=== PATIENT | male | born 1955 | race American Indian/Alaskan Native ===

== ENCOUNTER 2019-03-03 14:40 | Inpatient (IN) | payer OTHER ==
[~2019-03-03] VITALS: Ht 172.7 cm; Wt 97.6 kg
--- OUTSIDE RECORDS SUMMARY | ~2019-03-03 | XMS | Clinical Summary ---
Demographics + + + | Address | [address] | | | [place] [address] | + + + | Home Phone | | + + + | Preferred Language | Unknown | + + + | Marital Status | | + + + | Restorationist Affiliation | Unknown | + + + | Race | Unknown | + + + | Ethnic Group | Unknown | + + + Author + + + | Author | [facility] | | | and [place] | + + + | Organization | [facility] | | | and [place] | + + + | Address | Unknown | + + + | Phone | Unavailable | + + + Support + + +---------+ + | Name | Relationship | Address | Phone | + + +---------+ + | Earlene Reyes | ECON | Unknown | | + + +---------+ + Care Team Providers + +------+ + | Care President Financial Institution Name | Role | Phone | + +------+ + | Gely Cohen PA-C | PCP | | + +------+ + Allergies + + + + + + | Active Allergy | Reactions | Severity | Noted | Comments | | | | | Date | | + + + + + + | Diazepam | Other (See Comments) | High | 03/31/20 | Oversedation; | | | | | 17 | hallucinations; | | | | | | nightmares | + + + + + + | Oxycodone | Other (See Comments) | High | 03/31/20 | Over-sedation; | | | | | 17 | hallucinations; | | | | | | nightmares | + + + + + + | Pecan Nut | Anaphylaxis | High | 01/10/20 | Tongue swells | | | | | 17 | | + + + + + + Medications + + + +---------+------+------+-------+ | Medication | Sig | Dispensed | Refills | Star | End | Statu | | | | | | t | Date | s | | | | | | Date | | | + + + +---------+------+------+-------+ | lisinopril | Take 20 mg by mouth | | 0 | | | Activ | | (PRINIVIL, ZESTRIL) | Daily. | | | | | e | | 20 mg tablet | | | | | | | + + + +---------+------+------+-------+ | metoprolol | Take 100 mg by mouth | | 0 | | | Activ | | tartrate (LOPRESSOR) | Daily. High blood | | | | | e | | 100 mg tablet | pressure | | | | | | + + + +---------+------+------+-------+ | propranolol | Take 20 mg by mouth | | 0 | | | Activ | | (INDERAL) 20 MG | as needed. anxiety | | | | | e | | tablet | | | | | | | + + + +---------+------+------+-------+ | | Take 1 tablet by | | 0 | | | Activ | | triamterene-hydrochl | mouth Daily. | | | | | e | | orothiazide | | | | | | | | (MAXZIDE-25) 37.5-25 | | | | | | | | mg per tablet | | | | | | | + + + +---------+------+------+-------+ | zolpidem (AMBIEN | Take 12.5 mg by | | 0 | | | Activ | | CR) 12.5 MG CR | mouth nightly. | | | | | e | | tablet | | | | | | | + + + +---------+------+------+-------+ | atorvaSTATin | Take 20 mg by mouth | | 0 | 10/1 | | Activ | | (LIPITOR) 20 mg | nightly. | | | 8/20 | | e | | tablet | | | | 17 | | | + + + +---------+------+------+-------+ | docusate sodium | Take 100 mg by mouth | | 0 | | | Activ | | (COLACE) 100 mg | as needed for | | | | | e | | capsule | Constipation. | | | | | | + + + +---------+------+------+-------+ Active Problems + + + | Problem | Noted Date | + + + | Hypertensive CHF | 10/15/2016 | + + + | Hyperlipidemia | 10/15/2016 | + + + | Obesity | 10/15/2016 | + + + | Insomnia | 10/15/2016 | + + + | Hypertension | 10/15/2016 | + + + Family History + + +---------+ + | Medical History | Relation | Name | Comments | + + +---------+ + | Other (see comment) | Brother | | Heart problems | + + +---------+ + | Alcohol abuse | Father | | | + + +---------+ + | Heart attack | Father | | | + + +---------+ + | Other (see comment) | Father | | Heart problems | + + +---------+ + | No known problems | Maternal | | | | | Grandfath | | | | | er | | | + + +---------+ + | Other (see comment) | Maternal | | Lung problems | | | Grandmoth | | | | | er | | | + + +---------+ + | Cancer | Mother | | | + + +---------+ + | Other (see comment) | Mother | | Lung problems | + + +---------+ + | High blood pressure | Other | FAMILY | | | | | HX | | + + +---------+ + | Alzheimer's disease | Paternal | | | | | Grandfath | | | | | er | | | + + +---------+ + | No known problems | Paternal | | | | | Grandmoth | | | | | er | | | + + +---------+ + + + + + + | Relation | Name | Status | Comments | + + + + + | Brother | | | | | | | (Age | | | | | 3) | | + + + + + | Father | | | | | | | (Age | | | | | 53) | | + + + + + | Maternal Grandfather | | Other | STATUS UNKNOWN | + + + + + | Maternal Grandmother | | | | + + + + + | Mother | | | | | | | (Age | | | | | 53) | | + + + + + | Other | FAMILY HX | | | + + + + + | Paternal Grandfather | | | | | | | (Age | | | | | 103) | | + + + + + | Paternal Grandmother | | Other | STATUS UNKNOWN | + + + + + Social History + +-------+ +--------+ + | Tobacco Use | Types | Packs/Day | Years | Date | | | | | Used | | + +-------+ +--------+ + | Former Smoker | | 1 | 18 | Quit: 2004 | + +-------+ +--------+ + + +---+---+---+ | Smokeless Tobacco: | | | | | Never Used | | | | + +---+---+---+ + + +---------+ + | Alcohol Use | Drinks/We | oz/Week | Comments | | | ek | | | + + +---------+ + | No | | | | + + +---------+ + + + + | Sex Assigned at | Date Recorded | | | | + + + | Not on file | | + + + + + + + | Job Start Date | Occupation | Industry | + + + + | Not on file | Not on file | Not on file | + + + + + + + + | Travel History | Travel Start | Travel End | + + + + + + | No recent travel history available. | + + Last Filed Vital Signs + + + + | Vital Sign | Reading | Time Taken | + + + + | Blood Pressure | 134/83 | 06/26/20178 PST | + + + + | Pulse | 60 | 06/26/20178 PST | + + + + | Temperature | 36.2 C (97.1 F) | 03/25/20171154 PST | + + + + | Respiratory Rate | 16 | 03/25/20175 PST | + + + + | Oxygen Saturation | 96% | 03/25/2017 1155 PST | + + + + | Inhaled Oxygen | - | - | | Concentration | | | + + + + | Weight | 104.8 kg (231 lb) | 06/26/20171247 PST | + + + + | Height | 172.7 cm (5' 8") | 06/26/20171247 PST | + + + + | Body Mass Index | 35.12 | 06/26/20171247 PST | + + + + Plan of Treatment + + + + + | Health Maintenance | Due Date | Last Done | Comments | + + + + + | Hepatitis C | | | | | Screening | 7 | | | + + + + + | Vaccine: | | | | | Pneumococcal 19-64 | 6 | | | | (PPSV23 only) Medium | | | | | Risk (1 of - | | | | | PPSV23) | | | | + + + + + | Colorectal Cancer | | | | | Screening | 7 | | | | (Colonoscopy) | | | | + + + + + | Vaccine: Zoster (2 | | 02/05/2017 | | | of 3) | 7 | | | + + + + + | Vaccine: Influenza | | 01/22/2018, 02/05/2017, | | | (#1) | 9 | 01/04/2016, Additional history | | | | | exists | | + + + + + | Vaccine: | | 10/09/2011 | | | Dtap/Tdap/Td (2 - | 2 | | | | Td) | | | | + + + + + Implants + +--------+--------+ +--------+--------+--------+ | Implanted | Type | Area | Manufacture | Device | Shelf | Model | | | | | r | | Expira | / | | | | | | Identi | tion | Serial | | | | | | fier | Date | / Lot | + +--------+--------+ +--------+--------+--------+ | Putty Bone Dbm Grftn 0.5cc - | Bone | N/A: | [employer] - | | 12/24/ | [id number] | | [id number]: Qty: 1 | | Spine | MEDT | | 2019 | | | on 03/24/2017 by Armen, | | Cervic | | | | /[id number] | | Zaire Castañeda DO | | al | | | | 9-050 | | | | | | | | / | + +--------+--------+ +--------+--------+--------+ | Strut Anatomic Peek [id number] | Generi | N/A: | [employer] - | | 06/13/ | [id number] | | - [id number]: Qty: 1 | c | Spine | MEDT | | 2024 | 1 / | | on 03/24/2017 by Armen, | | Cervic | | | | /[id number] | | Zaire Castañeda DO | | al | | | | | + +--------+--------+ +--------+--------+--------+ | Imp Spn Rupal Peek [id number] - | Generi | N/A: | [employer] - | | 12/13/ | [id number] | | [id number]: Qty: 2 | c | Spine | MEDT | | 2023 | 1 / | | on 03/24/2017 by Armen, | | Jonathan | | | | /[id number] | | Zaire Castañeda DO | | al | | | | 622 | + +--------+--------+ +--------+--------+--------+ | Plate Ant [place] Cerv 35mm | Plate | N/A: | [employer] - | | | [id number] | | - [id number]: Qty: 1 | | Spine | MEDT | | | 5 / / | | on 03/24/2017 by Armen, | | Jonathan | | | | | | Zaire Castañeda DO | | al | | | | | + +--------+--------+ +--------+--------+--------+ | Screw Slf-Drl V/A 4.0x17mm - | Screw | N/A: | [employer] - | | | [id number] | | [id number]: Qty: 1 on | | Spine | MEDT | | | / | | 03/24/2017 by Zaire Ayers | | Jonathan | | | | | | DO Maddy | | al | | | | | + +--------+--------+ +--------+--------+--------+ | Screw Slf-Drl V/A 4.0x18mm - | Screw | N/A: | [employer] - | | | [id number] | | [id number]: Qty: 3 on | | Spine | MEDT | | | | | 03/24/2017 by Zaire Ayers | | Cervic | | | | | | A, DO | | al | | | | | + +--------+--------+ +--------+--------+--------+ Results Not on filefrom Last 3 Months Insurance + +--------+ +--------+ +---------+--------+ | Payer | Benefi | Subscriber | Effect | Phone | Address | Type | | | t Plan | ID | chiquis | | | | | | / | | Dates | | | | | | Group | | | | | | + +--------+ +--------+ +---------+--------+ | [place] | MEDICA | [id number] | | [phone] | | Med[place] | | | [place] | | 017-Pr | 2 | | id | | | PLUS | | esent | | | | + +--------+ +--------+ +---------+--------+ | [facility] | IHS | [id number] | | | | Indemn | | SERVICE | YELLOW | | 017-Pr | | | ity | | | HAWK | | esent | | | | + +--------+ +--------+ +---------+--------+ + +--------+ +--------+ + + | Guarantor Name | Accoun | Relation to | Date | Phone | Billing Address | | | t Type | Patient | of | | | | | | | | | | + +--------+ +--------+ + + | Eric Reyes Jr | Person | Self [birth year] | [address] | | | al/Fam | | 1955 | [phone] | [place] [address] | | | pawan | | | 3 (Home) | | + +--------+ +--------+ + + Advance Directives Patient has advance care planning documents, and code status on file. For more information, please contact:[facility]y [facility] [place] [phone] + + + + + | Code Status | Date | Date | Comments | | | Activated | Inactivated | | + + + + + | Full Code | 03/24/2017 | 03/25/2017 | | | | 16:16 | 18:36 | | + + + + +
--- OUTSIDE RECORDS SUMMARY | ~2019-03-03 | XMS | Clinical Summary ---
Demographics + + + | Address | [address] | | | [place] [address] | + + + | Home Phone | | + + + | Preferred Language | Unknown | + + + | Marital Status | | + + + | Bahai Affiliation | Unknown | + + + | Race | Unknown | + + + | Ethnic Group | Unknown | + + + Author + + + | Author | [facility] | | | and [place] | + + + | Organization | [facility] | | | and [place] [...] Team Providers + +------+ + | Care Cab Starter Name | Role | Phone | + [...] | [employer] - | | 12/24/ | [id number] | | [id number]: Qty: 1 | | Spine | MEDT | | 2019 | | | on 03/24/2017 by Armen, | | Cervic | | | | /[id number] | | Zaire Castañeda DO | | al | | | | 9-050 | | | | | | | | / | + +--------+--------+ +--------+--------+--------+ | Strut Anatomic Peek [id number] | Generi | N/A: | [employer] - | | 06/13/ | [id number] | | - [id number]: Qty: 1 | c | Spine | MEDT | | 2024 | 1 / | | on 03/24/2017 by Armen, | | Cervic | | | | /[id number] | | Zaire Castañeda DO | | al | | | | | + +--------+--------+ +--------+--------+--------+ | Imp Spn Rupal Peek [id number] - | Generi | N/A: | [employer] - | | 12/13/ | [id number] | | [id number]: Qty: 2 | c | Spine | MEDT | | 2023 | 1 / | | on 03/24/2017 by Armen, | | Jonathan | | | | /[id number] | | Zaire Castañeda DO | | al | | | | 622 | + +--------+--------+ +--------+--------+--------+ | Plate Ant [place] Cerv 35mm | Plate | N/A: | [employer] - | | | [id number] | | - [id number]: Qty: 1 | | Spine | MEDT | | | 5 / / | | on 03/24/2017 by Armen, | | Jonathan | | | | | | Zaire Castañeda DO | | al | | | | | + +--------+--------+ +--------+--------+--------+ | Screw Slf-Drl V/A 4.0x17mm - | Screw | N/A: | [employer] - | | | [id number] | | [id number]: Qty: 1 on | | Spine | MEDT | | | / | | 03/24/2017 by Zaire Ayers | | Jonathan | | | | | | DO Maddy | | al | | | | | + +--------+--------+ +--------+--------+--------+ | Screw Slf-Drl V/A 4.0x18mm - | Screw | N/A: | [employer] - | | | [id number] | | [id number]: Qty: 3 on | | Spine | [...] +---------+--------+ | [employer]ICA[employer] [place] | MEDICA | [id number] | | [phone] | | Medica | | | [place] | | 017-Pr | 2 | | id | | | PLUS | | esent | | | | + +--------+ +--------+ +---------+--------+ | [employer] [facility] | IHS | [id number] | | | | Indemn | | [...] | Self | [birth year] | [address] | | | al/Fam | | 1955 | [phone] | [place] [address] | | | pawan | | | 3 (Home) | | + +--------+ +--------+ + + Advance Directives Patient has advance care planning documents, and code status on file. For more information, please contact:[facility] nicky [facility]Tr[facility] HospitalP[facility] [place] [address] + + + + + | Code Status | Date | Date | Comments | | | Activated | Inactivated | | + + + + + | Full Code | 03/24/2017 | 03/25/2017 | | | | 16:16 | 18:36 | | + + + + +
--- OUTSIDE RECORDS SUMMARY | ~2019-03-03 | XMS | Clinical Summary ---
Demographics + + + | Address | [address] | | | [place] [address] | + + + | Home Phone | | + + + | Preferred Language | Unknown | + + + | Marital Status | | + + + | Spiritism Affiliation | Unknown | + + + | Race | Unknown | + + + | Ethnic Group | Unknown | + + + Author + + + | Author | [facility] | | | and [place] | + + + | Organization | [facility] | | | and [place] [...] Team Providers + +------+ + | Care Switch Technician Name | Role | Phone | + [...] | [employer] - | | 12/24/ | [id number] | | [id number]: Qty: 1 | | Spine | MEDT | | 2019 | | | on 03/24/2017 by Armen, | | Cervic | | | | /[id number] | | Zaire Castañeda DO | | al | | | | 9-050 | | | | | | | | / | + +--------+--------+ +--------+--------+--------+ | Strut Anatomic Peek [id number] | Generi | N/A: | [employer] - | | 06/13/ | [id number] | | - [id number]: Qty: 1 | c | Spine | MEDT | | 2024 | 1 / | | on 03/24/2017 by Armne, | | Cervic | | | | /[id number] | | Zaire Castañeda DO | | al | | | | | + +--------+--------+ +--------+--------+--------+ | Imp Spn Rupal Peek [id number] - | Generi | N/A: | [employer] - | | 12/13/ | [id number] | | [id number]: Qty: 2 | c | Spine | MEDT | | 2023 | 1 / | | on 03/24/2017 by Armen, | | Jonathan | | | | /[id number] | | Zaire Castañeda DO | | al | | | | 622 | + +--------+--------+ +--------+--------+--------+ | Plate Ant [place] Cerv 35mm | Plate | N/A: | [employer] - | | | [id number] | | - [id number]: Qty: 1 | | Spine | MEDT | | | 5 / / | | on 03/24/2017 by Armen, | | Jonathan | | | | | | Zaire Castañeda DO | | al | | | | | + +--------+--------+ +--------+--------+--------+ | Screw Slf-Drl V/A 4.0x17mm - | Screw | N/A: | [employer] - | | | [id number] | | [id number]: Qty: 1 on | | Spine | MEDT | | | / | | 03/24/2017 by Zaire Ayers | | Jonathan | | | | | | DO Maddy | | al | | | | | + +--------+--------+ +--------+--------+--------+ | Screw Slf-Drl V/A 4.0x18mm - | Screw | N/A: | [employer] - | | | [id number] | | [id number]: Qty: 3 on | | Spine | [...] +---------+--------+ | [employer]ICA[place] | MEDICA | [id number] | | [phone] | | Medica | | | [place] | | 017-Pr | 2 | | id | | | PLUS | | esent | | | | + +--------+ +--------+ +---------+--------+ | [facility] | IHS | [id number] | | | | Indemn | | [...] | Self | [birth year] | | [address] | | | al/Fam | | 1955 | [phone] | [place] [address] | | | pawan | | | 3 (Home) | | + +--------+ +--------+ + + Advance Directives Patient has advance care planning documents, and code status on file. For more information, please contact:[facility] nicky CaceresHawthorn CenterPAL [place] [address] + + + + + | Code Status | Date | Date | Comments | | | Activated | Inactivated | | + + + + + | Full Code | 03/24/2017 | 03/25/2017 | | | | 16:16 | 18:36 | | + + + + +
[~2019-03-03 14:40] MED LIST: AMBIEN CR12.5 MG PO; CALCIUM CARBON500 MG PO; CYCLOBENZAPRINE10 MG PO; DIAZEPAM5 MG PO; DILAUDID2 MG PO; DOCUSATE SODIU100 MG PO; DUCODYL5 MG PO; LEVOFLOXACIN500 MG PO; LIDODERM700 MG TOP; LIPITOR20 MG PO; LISINOPRIL20 MG PO; LORATADINE10 MG PO; MECLIZINE HCL25 MG PO; METHOCARBAMOL750 MG PO; METOPROLOL SUCC25 MG PO; METOPROLOL TAR100 MG PO; METOPROLOL TART50 MG PO; NORCO 10-325 T1 EACH PO; ROBAXIN-750750 MG PO; SIMVASTATIN20 MG PO; SURMONTIL PO; TOPROL XL100 MG PO; TRAZODONE HCL100 MG PO; TRIAMTERENE-HC1 EAC1 PO; TRIAMTERENE-HC1 EAC3 PO; VITAMIN D1000 UNI1 PO
--- OUTSIDE RECORDS SUMMARY | 2019-03-03 14:42 | XMS ---
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 Cody has no Care Guidelines for this patient. [place] VISIT COUNT (12 MO.) 1 ADAM [place] TOTAL 1 NOTE: Visits indicate total known visits. ED/UCC VISIT TRACKING (12 MO.) 03/03/2019 14:40 ADAM [facility] [place] TYPE: Emergency COMPLAINT: - URINE PROBLEM INPATIENT VISIT TRACKING (12 MO.) No inpatient visits to display in this time frame [id number]
--- NOTE | 2019-03-03 17:47 | EKG ---
[facility] [address] [place] [address] Signed Sinus rhythm with premature atrial complexes Otherwise normal ECG When compared with ECG of 02-FEB-2019 13:30, premature atrial complexes are now present Vent. rate has increased BY 42 BPM Confirmed by MADHU SILVA MD ([id number]) on 03/03/2019 5:47:11 PM Electronically Signed By: MADHU SILVA MD 03/03/19 1747 PATIENT NAME: RG DYER Electrocardiogram DATE OF : 57 PHYSICIAN: MADHU SILVA MD REPORT #: [id number] REPORT IS CONFIDENTIAL AND NOT TO BE RELEASED WITHOUT AUTHORIZATION
--- NOTE | 2019-03-03 18:48 | NUR ---
PATIENT SITTING UP EATING HIS DINNER AT THIS TIME. 1500 ML BOLUS FINISHING. IVF TO BE AT 125 AFTER BOLUS FINISHES. CONTINUE TO MONITOR.
--- NOTE | 2019-03-03 18:56 | NUR ---
DR. SILVA NOTIFIED OF MAG LEVEL OF 1.6. PT FINISHES HIS DINNER AND IS SITTING UP IN BED.
--- NOTE | 2019-03-03 19:30 | NUR ---
REPORT RC'D FROM WAN RUTLEDGE. PT CURRENTLY IN ROOM SITTING AT EDGE OF BED. NO ACUTE DISTRESS NOTED.
--- NOTE | 2019-03-03 20:14 | NUR ---
PT AAOX4 AND RESPONDING APPRORIATELY, GOOD HISTORIAN. AFEBRILE. SINUS RHYTHM WITH HR IN 80'S, BILATERAL PERPHERIAL PULSES +2 IN UPPER AND LOWERS. NO EDEMA. LUNGS CLEAR THROUGHOUT ON ROOM AIR. BOWEL TONES ACTIVE X4, DENIES NAUSEA, LARGE BRUISING TO ABD NOTED FROM RECENT SURGERY, PT STATES BRUISING IMPROVING. SURGICAL INCISION NOTED TO ABD, STICHES IN PLACE, WELL APRROXIMATED, NO DRAINAING, MILD REDNESS TO AREA, NO HEAT. PT VOIDING SMALL AMOUNTS, C/O BURNING AND DISCOMFORT, COLA COLORED URINE. IV SITE FLUSHED AND PATENT, 2GM MAGNESIUM INFUSING AT 50 ML/HR, LR INFUSING AT 125 ML/HR, WNL. EDUCATION PROVIDED ON SAFETY, FALL PREVENTION, CURRENT ILLNESS, PAIN MANAGEMENT, PT AGREEABLE AND EXHIBITS KNOWLEDGE. DENIES OTHER NEEDS. CALL LIGHT WITHIN REACH.
--- NOTE | 2019-03-03 21:18 | NUR ---
PT OFFERED HOME MED SCHEDULED FOR 2100. PT REQUESTING TO TAKE MED AT 2300. PT STATES, "OH NO THAT'S TOO EARLY. I TAKE IT AT 11 AT HOME, IF I TAKE BEFORE 11 I WILL BE WIDE AWAKE AT 2AM."
--- NOTE | 2019-03-03 21:50 | NUR ---
PT SBA TO USE URINAL, GAIT STEADY. VOIDED 400 ML YELLOW URINE, C/O MILD BURNING, DENIES ONGOING PAIN. BACK TO BED. CALL LIGHT WITHIN REACH.
--- NOTE | 2019-03-04 00:40 | NUR ---
NO ACUTE CHANGES TO ASSESSMENT. URINE COLOR YELLOW AND ODOR NOTED, PAIN/BURNING CONTINUES. VOIDING 200-400. PAIN WITHIN TOLERABLE LIMITS. REINFORCED SAFETY AND FALL PREVENTION. CALL LIGHT WITHIN REACH.
--- NOTE | 2019-03-04 02:25 | NUR ---
PT RESTING AT THIS TIME. NO ACUTE DISTRESS NOTED.
--- NOTE | 2019-03-04 04:30 | NUR ---
PT REMAINS RESTFUL WITH NO ACUTE DISTRESS. REMAINS AFEBRILE.
--- NOTE | 2019-03-04 05:30 | NUR ---
SBA TO USE BEDSIDE URINAL GAIT STEADY. C/O HEADACHE, PRN TYLENOL GIVEN. ASSESSMENT UNCHANGED. DENEIS OTHER NEEDS. CALL LIGHT WITHIN REACH.
--- NOTE | 2019-03-04 07:16 | NUR ---
PT RESTED WELL THROUGHOUT NIGHT. PT REMAINED AFEBRILE. ASSESSMENT UNCHANGED. URINE OUPUT QS AND COLOR IMPROVED, ODOR CONTINUES. PAIN WELL CONTROLLED.
--- NOTE | 2019-03-04 09:00 | NUR ---
PT AWAKE AND ALERT, STANDS AT THE BEDSIDE TO VOID. PT DENIES NEED FOR BREAKFAST THIS MORNING, STATES "I DON'T EAT BREAKFAST NORMALLY, JUST COFFEE". PT GIVEN A CUP OF COFFEE. PT CALLING HIS ON THE ROOM PHONE.
--- NOTE | 2019-03-04 09:44 | NUR ---
IV SITES ARE INTACT, NO REDNESS OR SWELLING AT EITHER SITE NOTED, PT DENIES PAIN AT EITHER SITE. ALL VITALS ARE WNL AT THIS TIME. PT REMAINS ALERT AND ORIENTED X4, SITTING UP AT THE BEDSIDE WATCHING TV.
--- NOTE | 2019-03-04 10:15 | NUR ---
PT LAYING DOWN IN BED WITH TV ON, DOZES OFF AND ON, POSSIBLE SLEEP APNEA.
--- NOTE | 2019-03-04 12:30 | NUR ---
PT WOKE UP FROM NAP. LUNCH BROUGHT INTO PT ROOM. PT ALERT AND ORIENTED X4. PT DENIES SOB AND NAUSEA AT THIS TIME. VITALS ARE WNL. IV SITES ARE INTACT, NO REDNESS OR SWELLING NOTED, FLUIDS AND FLUSHES INFUSE EASILY. PT SITTING AT THE BEDSIDE TO EAT LUNCH.
--- NOTE | 2019-03-04 14:42 | NUR ---
CALLED REPORT TO WINSTON RUTLEDGE. ALL QUESTIONS ANSWERED.
--- NOTE | 2019-03-04 14:58 | NUR ---
PT TRANSFERED TO ROOM 109 ON MEDSUR, ALL PERSONAL BELONGINGS WENT WITH PT.
--- NOTE | 2019-03-04 16:17 | NUR ---
WHEN PATIENT CAME OVER SOME TIME THIS AFTERNOON I ASKED PATIENT IF HE WOULD LIKE TO TAKE A SHOWER AND HE SAID YES. SO I SET HIM UP FOR A SHOWER AND WRAPPED HIS IVS. AND HE GOT IN.
--- NOTE | 2019-03-04 18:39 | NUR ---
PT TRANSFERED FROM CCU. PT ON ROOM AIR, LUNG SOUNDS CLEAR. PT TOLERATING 2G NA DIET. PAIN WELL CONTROLLED WITH NORCO AND TYLENOL. IV FLUIDS INFUSING LR AT 75 ML/HR. PT SBA TO AMBULATE. CMS INTACT, WITHOUT EDEMA. VOIDING QS.
--- NOTE | 2019-03-04 19:20 | NUR ---
SHIFT REPORT RECEIVED FROM TOMOHLACEY MONTERO AT BEDSIDE. PT AWAKE AND RESTING IN BED, IV FLUIDS INFUSING PER MD ORDERS, SITE WNL. PT DENIES NEEDS, CALL LIGHT IN REACH.
--- NOTE | 2019-03-04 20:45 | NUR ---
ASSESSMENT COMPLETE, SCHEDULED MEDS GIVEN (SEE EMAR). PT REPORTS 5/10 PAIN IN NECK AND FOR HEADACHE, PRN TYLENOL GIVEN PER PT REQUEST. PT WISHES FOR SLEEPING MED AND PRN NORCO CLOSER TO [phone]. ABDOMINAL INCISION R/T PREVIOUS HERNIA REPAIR APPEARS HEALING WELL. VERY WELL APPROXIMATED. GENERALIZED BRUISING NOTED TO SITE. PT REPORTS PAIN WITH URINATION IS "BETTER THAN LAST TIME". WILL MONITOR. IV ABX INFUSING, SITE WNL. NO FURTHER NEEDS. CALL LIGHT IN REACH.
--- NOTE | 2019-03-04 21:30 | NUR ---
IV FLUIDS RESUMED AFTER IV ABX COMPLETE. SITE WNL, PT DENIES NEEDS AT THIS TIME. CALL LIGHT IN REACH.
--- NOTE | 2019-03-04 22:45 | NUR ---
PER PT REQUEST, PRN NORCO AND SLEEPING MEDICATION ADMINISTERED. IV FLUIDS INFUSING, SITE WNL. NO FURTHER NEEDS, CALL LIGHT IN REACH.
--- NOTE | 2019-03-05 00:35 | NUR ---
PT RESTING IN BED, EYES CLOSED. RR WNL. PT APPEARS COMFORTABLE, NO DISTRESS NOTED. IV FLUIDS INFUSING PER MD ORDERS, IV SITE WNL. CALL LIGHT IN REACH.
--- NOTE | 2019-03-05 02:30 | NUR ---
PT RESTING IN BED, EYES CLOSED, RR WNL. IV FLUIDS INFUSING, SITE WNL. NO DISTRESS NOTED, PT APPEARS COMFORTABLE. CALL LIGHT IN REACH.
--- NOTE | 2019-03-05 03:19 | NUR ---
ASSESSMENT COMPLETE, PT REPORTS 3/10 TOLERABLE PAIN. DENIES NEED FOR PAIN MEDICATION AT THIS TIME. NO NEW CHANGES OR CONCERNS. PT SITTING ON EDGE OF BED, NO DISTRESS NOTED. CALL LIGHT IN REACH. IV FLUIDS INFUSING PER MD ORDERS, SITE WNL.
--- NOTE | 2019-03-05 11:30 | NUR ---
TYLENOL GIVEN FOR C/O QUEEN, STATED HE NEEDS ANOTHER CUP OF COFFEE.
--- NOTE | 2019-03-05 12:38 | NUR ---
SITTING UP IN RECLINER, IN GOOD SPIRITS, STATES HE WILL TAKE A SHOWER AFTER LUNCH. REMAINS AFEBRILE.
--- NOTE | 2019-03-05 14:35 | NUR ---
Sitting on edge of bed. States feeling better today. Would like to walk today, but does not have his knee brace or cane. He will ask his to bring in.
[2019-03-05] MEDS ORDERED: MAXZIDE 37.5 MG-1 EA PO (14:43)
[2019-03-05] MEDS ORDERED: ITCH RELIEF15 GM TOP (14:45)
[2019-03-05] MEDS ORDERED: DAILY MULTIPLE1 EACH PO (14:46)
--- NOTE | 2019-03-05 14:47 | NUR ---
MED REC COMPLETED.
--- NOTE | 2019-03-05 15:00 | NUR ---
IV TO SL @ THIS TIME.
--- NOTE | 2019-03-05 17:49 | NUR ---
PT REMAINS AFEBRILE, IV TO SL, GOOD APPETITE AND TAKING FLUIDS WELL. UP IN ROOM INDEP. NOW. SHOWERED TODAY.
--- NOTE | 2019-03-05 18:59 | NUR ---
AROUND 1230PM I SET PATIENT UP FOR HIS SHOWER. I GOT HIM SUGAR FOR HIS COFFEE CHANGED HIS BED LINENS.
--- NOTE | 2019-03-05 19:05 | NUR ---
SHIFT REPORT RECEIVED FROM [facility] AAMIR OLMSTEAD AT BEDSIDE. PT AWAKE AND RESTING IN BED, RR WNL. NO DISTRESS NOTED, PT DENIES NEEDS. SALINE LOCKED. CALL LIGHT IN REACH.
--- NOTE | 2019-03-05 20:57 | NUR ---
PT CALLED COMPLAINING OF UPSET STOMACH AND ASKED FOR SOME TUMS. WILL CHECK WITH PRIMARY RN TO SEE WHAT HE CAN HAVE. IN THE MEAN TIME HE WANTED SOME MOUTH WASH WHICH IS NOW AT BEDSIDE. CALL LIGHT IS CLOSE.
--- NOTE | 2019-03-05 21:30 | NUR ---
ASSESSMENT COMPLETE, SCHEDULED MEDS GIVEN (SEE EMAR). VSS, PT ON RA. IV ABX INFUSING PER MD ORDERS, IV SITE WNL. GENERALIZED BRUISING NOTED TO ABDOMEN FROM POST HERNIA REPAIR. SITE APPEARS TO BE HEALING WELL, WELL APPROXIMATED. PT DENIES ADDITIONAL NEEDS, CALL LIGHT IN REACH.
--- NOTE | 2019-03-05 22:30 | NUR ---
PT REPORTING 5/10 PAIN, PRN NORCO AND SCHEDULED SLEEPING MEDICATION (SEE EMAR) ADMINISTERED. PT DENIES ADDITIONAL NEEDS, CALL LIGHT IN REACH.
--- NOTE | 2019-03-05 23:23 | NUR ---
PT AMBULATING INDEPENDENTLY IN HALLWAY, DENIES ADDITIONAL NEEDS. CALL LIGHT IN REACH.
--- NOTE | 2019-03-06 02:01 | NUR ---
PT RESTING IN BED, EYES CLOSED. RR WNL. NO DISTRESS NOTED, CALL LIGHT IN REACH.
--- NOTE | 2019-03-06 05:23 | NUR ---
PT HAD UNEVENTFUL NIGHT, SLEPT FOR MOST OF SHIFT. AMBULATED INDEPENDENTLY IN HALLWAY. VSS, PT ON RA. VOIDING QS, NO BM THIS SHIFT. IV ROCEPHIN AT BEDTIME. SALINE LOCKED, IV SITES X2 WNL. PT ON 2GM SODIUM DIET, TOLERATING WELL. MINIMAL NAUSEA REPORTED AT BEGINNING OF SHIFT, RESOLVED. DENIED PAIN. USES CALL LIGHT APPROPERIATELY.
--- NOTE | 2019-03-06 06:20 | NUR ---
VITALS AND I&OS DONE AND CHARTED. FRESH ICE WATER GIVEN. BEDSIDE TABLE AND CALL LIGHT IN REACH. PT NEEDS NOTHING AT THIS TIME.
--- NOTE | 2019-03-06 06:43 | NUR ---
ASSESSMENT COMPLETE, NO NEW CHANGES OR CONCERNS. PT DENIES PAIN. 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
[2019-03-06] MEDS ORDERED: BACTRIM DS TAB1 EACH PO (08:20)
--- NOTE | 2019-03-06 09:50 | NUR ---
PATIENT IS BEING D/C'D HOME
== END 2019-03-06 10:00 | disposition home or self-care (01) | DRG 872 ==
LOC: ED 14:40 → CCU 17:11 → MS 03-04 15:00
PROVIDERS: ADMIT Internal Medicine
DX: A41.59 Other Gram-negative sepsis (principal); N30.00 Acute cystitis without hematuria; F11.20 Opioid dependence, uncomplicated; I10 Essential (primary) hypertension; E78.5 Hyperlipidemia, unspecified; F51.04 Psychophysiologic insomnia; M54.2 Cervicalgia; G89.29 Other chronic pain; M15.9 Polyosteoarthritis, unspecified; Z79.899 Other long term (current) drug therapy
CPT/HCPCS: 36415; 71045; 80053; 81001; 83605; 83735; 84484; 85007; 85025; 85032; 87077; 87088; 87186; 93005; 93010; 96361; 96365; 96366; 96375; 99285-25; J0692; J0696; J1650; J2405; J3475; J7030; J7060; J7121

== ENCOUNTER 2019-06-25 16:33 | Emergency (ER) | payer OTHER ==
[~2019-06-25] VITALS: Ht 172.7 cm; Wt 99.8 kg
[~2019-06-25 16:33] MED LIST changes: +BACTRIM DS TAB1 EACH PO; +DAILY MULTIPLE1 EACH PO; +ITCH RELIEF15 GM TOP; +MAXZIDE 37.5 MG-1 EA PO
--- OUTSIDE RECORDS SUMMARY | 2019-06-25 16:36 | XMS ---
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 Care History Medical/Surgical 03/04/2019 [facility] PATIENT- [facility] ELIGIBLE PLEASE REFER PATIENT TO [facility] FOR NON EMERGENT MEDICAL NEEDS. [facility] CAN SEE PATIENTS SAME DAY FOR APTS IF PATIENT CALLS FIRST THING IN THE MORNING. [place] VISIT COUNT (12 MO.) 2 [facility] TOTAL 2 NOTE: Visits indicate total known visits. ED/UCC VISIT TRACKING (12 MO.) 06/25/2019 16:33 [facility] TYPE: Emergency COMPLAINT: - FALL 03/03/2019 14:40 [facility] TYPE: Emergency COMPLAINT: - URINE PROBLEM INPATIENT VISIT TRACKING (12 MO.) 03/03/2019 17:[address] [facility] TYPE: Medical Surgical COMPLAINT: - SEPSIS/UTI DIAGNOSES: - Psychophysiologic insomnia - Other Gram-negative sepsis Other Gra - Acute cystitis without hematuria - Hyperlipidemia, unspecified - Other Gram-negative sepsis Other Gra - Psychophysiologic insomnia - Acute cystitis without hematuria - Polyosteoarthritis, unspecified - Other rn long term care (current) drug therapy - Opioid dependence, uncomplicated - Cervicalgia - Sepsis, unspecified organism Sepsis, u - Cervicalgia - Hyperlipidemia, unspecified - Essential (primary) hypertension - Polyosteoarthritis, unspecified - Opioid dependence, uncomplicated - Essential (primary) hypertension - Other chronic pain - Other chronic pain - Other group home (current) drug therapy [email or web address]
[2019-06-25] MEDS ORDERED: ZESTRIL20 MG PO (16:54)
[2019-06-25] MEDS ORDERED: ROBAXIN-750750 MG PO (16:55)
== END 2019-06-25 18:35 | disposition home or self-care (01) ==
LOC: ED 16:33
DX: S20.212A Contusion of left front wall of thorax, initial encounter (principal); J40 Bronchitis, not specified as acute or chronic; W10.9XXA Fall (on) (from) unspecified stairs and steps, initial encounter; I10 Essential (primary) hypertension; E78.5 Hyperlipidemia, unspecified; G47.00 Insomnia, unspecified; Z87.891 Personal history of nicotine dependence; Z91.018 Allergy to other foods; Z79.899 Other long term (current) drug therapy
CPT/HCPCS: 71046; 99284-25

== ENCOUNTER 2020-09-30 05:45 | Emergency (ER) | payer OTHER ==
[~2020-09-30] VITALS: Ht 172.7 cm; Wt 99.8 kg
[~2020-09-30 05:45] MED LIST changes: +ZESTRIL20 MG PO
--- OUTSIDE RECORDS SUMMARY | 2020-09-30 05:48 | XMS ---
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 Care History Medical/Surgical 03/04/2019 [facility] PATIENT- [facility] ELIGIBLE PLEASE REFER PATIENT TO [facility] FOR NON EMERGENT MEDICAL NEEDS. [facility] CAN SEE PATIENTS SAME DAY FOR APTS IF PATIENT CALLS FIRST THING IN THE MORNING. [place] VISIT COUNT (12 MO.) [address] [place] [address] TOTAL 1 NOTE: Visits indicate total known visits. ED/UCC VISIT TRACKING (12 MO.) 09/30/2020 05:46 [facility] TYPE: Emergency COMPLAINT: - POSSIBLE UTI, SHAKING INPATIENT VISIT TRACKING (12 MO.) No inpatient visits to display in this time frame [email or web address]
== END 2020-09-30 07:15 | disposition home or self-care (01) ==
LOC: ED 05:45
DX: J06.9 Acute upper respiratory infection, unspecified (principal); I10 Essential (primary) hypertension; E78.5 Hyperlipidemia, unspecified; G47.00 Insomnia, unspecified; Z87.891 Personal history of nicotine dependence; Z91.018 Allergy to other foods; Z79.899 Other long term (current) drug therapy
CPT/HCPCS: 81001; 87081; 87147; 87880; 99283

== ENCOUNTER 2024-04-21 16:54 | Emergency (ER) | payer MEDICARE, OTHER ==
[~2024-04-21] VITALS: Ht 172.7 cm; Wt 85.5 kg
[~2024-04-21 16:54] MED LIST changes: +CELECOXIB200 MG PO; +CEPHALEXIN500 MG PO; +FLOMAX0.4 MG PO; +HYDROCODON-ACE1 EA11 PO
[2024-04-21] MEDS ORDERED: SODIUM CHLORIDE 0.9% 1,000 ML IV PRN (17:30)
[2024-04-21 17:48] LABS: BASOPHILS 0.6 % (0-2); EOSINOPHILS 0.4 % (0-6); HEMATOCRIT 46.7 % (35.0-50.0); HEMOGLOBIN 15.7 g/dL (12.0-18.0); LYMPHOCYTES 7.2 % (24-44); MCH 28.8 (27-36); MCHC 33.7 g/dl (30-36); MCV 85.7 fl (81-99); MONOCYTES 10.9 % (0-12); NEUTROPHILS 80.9 % (39-80); PLATELET COUNT 206 K/uL (140-440); RBC 5.45 M/ul (4.3-5.7); RDW 14.1 (10.5-15.0)
[2024-04-21 18:04] LABS: ALBUMIN 3.7 g/dL (3.4-5.0); ALBUMIN/GLOBULIN RATIO 1.12 (1.1-2.4); ANION GAP 16.4 (7-21); BILIRUBIN, TOTAL 0.7 ng/dL (0.2-1.0); BUN/CREATININE RATIO 15.87 (6.0-28.6); CALCIUM 8.9 mg/dL (8.5-10.1); CREATININE, SERUM 0.63 mg/dL (0.70-1.30); MAGNESIUM 1.5 mg/dL (1.8-2.4); POTASSIUM 3.4 mmol/L (3.5-5.1)
[2024-04-21 19:16] LABS: BILIRUBIN, URINE NEGATIVE (negative); BLOOD/HGB, URINE TRACE-L (Negative); KETONE, URINE NEGATIVE (Negative); LEUK ESTERASE, URINE NEGATIVE (negative); NITRITE, URINE NEGATIVE (negative)
[2024-04-21] MEDS ORDERED: MAGNESIUM OXIDE 400 MG TABLET PO ONE (19:30)
[2024-04-21] MEDS ORDERED: MAGNESIUM SULFATE 2 GM/50 ML BAG IV ONE (19:30)
[2024-04-21 19:34] LABS: BACTERIA, URINE NONE SEEN /hpf (negative); CASTS, URINE NONE SEEN \\lpf; COLLECTION TYPE, URINE CLEAN CATCH; CRYSTALS, URINE NONE SEEN (0-1+); EPITHELIAL CELLS, URINE NONE SEEN /lpf (0-1+); RED BLOOD CELLS, URINE 0-1 /hpf (0-5); REFLEX CULTURE, URINE No (No); WHITE BLOOD CELLS, URINE 0-1 /HPF (0-5)
[2024-04-21] MEDS ORDERED: LACTATED RINGER'S 1,000 ML IV ONE (20:45)
[2024-04-21] MEDS ORDERED: DIPHENOXYLATE/ATROPINE 1 EA TAB PO ONE (22:45)
[2024-04-21] MEDS ORDERED: LOMOTIL TABLET1 EACH PO (22:51)
[2024-04-21 23:20] VITALS: BP 155/78
== END 2024-04-21 23:20 | disposition home or self-care (01) ==
LOC: ED 16:54
PROVIDERS: Emergency Medicine
DX: K52.9 Noninfective gastroenteritis and colitis, unspecified (principal); E86.0 Dehydration; E83.42 Hypomagnesemia; E87.1 Hypo-osmolality and hyponatremia; E87.6 Hypokalemia; I10 Essential (primary) hypertension; E78.5 Hyperlipidemia, unspecified; Z87.891 Personal history of nicotine dependence; Z91.018 Allergy to other foods; Z79.899 Other long term (current) drug therapy
CPT/HCPCS: 36415; 80053; 81001; 83735; 85025; 87045; 87046; 96361; 96365; 99284-25; J3475; J7030; J7121

== ENCOUNTER 2024-07-26 09:55 | Day surgery (SDC) | payer MEDICARE, OTHER ==
[2024-07-20 13:27] VITALS: BP 142/86
[~2024-07-26] VITALS: Ht 172.7 cm; Wt 85.0 kg
[2024-07-26] VITALS (7 sets, daily range): BP systolic 128–145; BP diastolic 66–79
[~2024-07-26 09:55] MED LIST changes: +ALL DAY ALLERGY10 M4 PO; +BIOFREEZE89 ML TOP; +BISOPROLOL FUMAR5 MG PO; +CEFAZOLIN SODIUM 2 GM/20 ML SYR IV SCH; +HYDROCODON-ACE1 EAC8 PO; +IBLOOD GLUCOSE TEST STRIP 1 EA TEST VI PRN; +LACTATED RINGER'S 1,000 ML IV SCH; +LIDOCAINE HCL 1% 5 ML SDV INJ ONE; +LOMOTIL TABLET1 EACH PO; +SEVOFLURANE 250 ML BTL INH ONE
--- NOTE | 2024-07-26 10:18 | NUR ---
NECK AND LEFT SHOULDER PAIN. AT BS.
--- NOTE | 2024-07-26 10:53 | NUR ---
1058 DR MATA IN TO TALK WITH PT. CLIENT CARE COORDINATOR IN TO SEE NICOLLE. HAS BEEN UP TO BR.
[2024-07-26] MEDS ORDERED: OXYCODONE/APAP 5/325 TAB PO PRN (11:00)
[2024-07-26] MEDS ORDERED: diphenhydrAMINE HCL 25 MG CAP PO PRN (11:00)
[2024-07-26] MEDS ORDERED: ondansetron HCL 4 MG/2 ML VIAL IV PRN ×2 (11:00→15:45)
[2024-07-26] MEDS ORDERED: HYDROmorphone HCL 1 MG/ML SYR IV PRN ×2 (11:00→15:45)
[2024-07-26] MEDS ORDERED: LACTATED RINGER'S 1,000 ML IV SCH (11:00)
[2024-07-26] MEDS ORDERED: fentaNYL citrate 100 MCG/2 ML VIAL ONE (11:01)
[2024-07-26] MEDS ORDERED: SUGAMMADEX SODIUM 200 MG/2 ML ML ONE (11:02)
[2024-07-26] MEDS ORDERED: ROCURONIUM BROMIDE 50 MG/5 ML SYR ONE (11:02)
[2024-07-26] MEDS ORDERED: ondansetron HCL 4 MG/2 ML VIAL ONE (11:02)
[2024-07-26] MEDS ORDERED: DEXAMETHASONE SOD PHOS 4 MG/ML VIAL ONE (11:02)
[2024-07-26] MEDS ORDERED: propofoL 200 MG/20 ML VIAL ONE (11:02)
[2024-07-26] MEDS ORDERED: methocarbamoL 500 MG TABLET PO PRN (11:15)
[2024-07-26] MEDS ORDERED: SUCCINYLCHOLINE IN 0.9% NACL 200 MG/10 ML SYRINGE ONE (11:25)
[2024-07-26] MEDS ORDERED: LIDOCAINE HCL 2% 5 ML SDV ONE (11:25)
[2024-07-26] MEDS ORDERED: ESMOLOL HCL 100 MG/10 ML VIAL IV ONE (12:04)
--- NOTE | 2024-07-26 13:38 | NUR ---
07/26/24 Mj8 Savanah Osuna 1323 PT TO PACU SLEEPING ORAL AIRWAY IN PLACE O2 VIA MASK FOGGING NOTED IN MASK.
[2024-07-26] MEDS ORDERED: fentaNYL citrate 50 MCG/ML SDV ONE (13:49)
--- NOTE | 2024-07-26 14:36 | NUR ---
CBI HANGING TKO WITH URINE CLEAR.
--- NOTE | 2024-07-26 15:19 | NUR ---
URINE CONTS TO BE BE CLEAR YELLOW.
[2024-07-26] MEDS ORDERED: NALOXONE HCL 0.4 MG SYR IV PRN (15:45)
[2024-07-26] MEDS ORDERED: fentaNYL citrate 50 MCG/ML SDV IV PRN (15:45)
[2024-07-26] MEDS ORDERED: MEPERIDINE HCL 25 MG/1 ML VIAL IV PRN (15:45)
--- NOTE | 2024-07-26 17:15 | NUR ---
REPORT RECEIVED FROM AAMIR BOSS IN PACU. VITAL SIGNS TAKEN AND DOCUMENTED IN THE CHART. FULL ASSESSMENT COMPLETE AND DOCUMENTED IN THE CHART. PATIENT IS ALERT AND ORIENTED TIMES FOUR. CARDIAC WITH NORMAL S1 AND S2 ON AUSCULTATION. RADIAL AND PEDAL PULSES ARE STRONG BILATERALLY. SENSATION INTACT WITH CHRONIC NUMBNESS AND TINGLING IN THE LEFT FOOT. NO EDEMA NOTED. CAPILLARY REFILL IS LESS THAN 3 SECONDS IN THE UPPER AND LOWER EXTREMITIES BILATERALLY. PATIENT IS ON ROOM AIR AND LUNG SOUNDS ARE CLEAR THROUGHOUT. PATIENT IS ON A REGULAR DIET AND BOWEL TONES ARE ACTIVE IN ALL FOUR QUADRANATS. PATIENT WITH CBI THAT IS SHUT OFF AT THIS TIME. IV SITE FLUSHED WITH 10 ML NORMAL SALINE AND IS SALINE LOCKED. IV DRESSING IS CLEAN, DRY, AND INTACT. PATIENT RATED PAIN 3/10 BUT DOES NOT WANT ANYTHING FOR PAIN AT THIS TIME. PENILE CYST DRESSING WITH PIECE OF GAUZE IN PLACE THAT HAS A SMALL AMOUNT OF RED DRAINAGE NOTED. PATIENT IS IN THE ROOM AND SITTING IN THE RECLINER AT BEDSIDE. PATIENT STATED NO FURTHER NEEDS AT THIS TIME. CALL LIGHT AND PERSONAL BELONINGS ARE WITHIN REACH.
--- NOTE | 2024-07-26 18:20 | NUR ---
PATIENT IS LYING IN BED WITH HOB ELEVATED AND EYES OPEN. RESPIRATIONS ARE EVEN AND UNLABORED. PATIENT RATED PAIN 4/10 BUT IS WANTING TO "HOLD OFF LONG POSSIBLE". [address] CATHETER CBI PORT PLUGGED AT THIS TIME. IV SITE FLUSHED WITH 10 ML NORMAL SALINE AND HAS LR INFUSING AT 50 ML/HR. IV DRESSING IS CLEAN, DRY, AND INTACT. WARM BLANKET AND FRESH CUP OF ICE WATER PROVIDED. PATIENT IS SITTING IN THE RECLINER AT BEDSIDE. PATIENT STATED NO FURTHER NEEDS AT THIS TIME. CALL LIGHT AND PERSONAL BELONGINGS ARE WITHIN REACH.
--- NOTE | 2024-07-26 19:05 | NUR ---
REPORT RECEIVED FROM SUMA RUTLEDGE. pt RESTING IN THE BED. STRICT BED REST ORDERS. BOARD UPDATED. pt DENIES ANY OTHER NEEDS AT THIS TIME. CALL LIGHT WITHIN REACH.
[2024-07-26] MEDS ORDERED: ZOLPIDEM TARTRATE 5 MG TAB PO PRN (20:00)
--- NOTE | 2024-07-26 20:58 | NUR ---
PT UTILIZES CALL LIGHT, REPORTS THAT HE IS HAVING INCREASED PAIN TO URINARY MEATUS. RATES 5/10, DESCRIBES STINGING. PRN ADMINISTERED. SEE EMAR. ICE WATER REFILLED. PT DENIES FURTHER NEEDS. CALL LIGHT IN REACH.
--- NOTE | 2024-07-26 21:35 | NUR ---
ASSESSMENT DONE. pt URINE IS CLEAR YELLOW IN THE TUBE OF DAILY. pt DENIES ANY PAIN AT THIS TIME. DAILY CARE DONE. pt DENIES ANY OTHER NEEDS AT THIS TIME. CALL LIGHT WITHIN REACH.
--- NOTE | 2024-07-27 00:36 | NUR ---
pt RESTING IN THE BED ON RIGHT SIDE WITH EYES CLOSED. RR EVEN AND UNLABORED. CALL LIGHT WITHIN REACH.
[2024-07-27 01:30] VITALS: BP 94/53
[2024-07-27 01:38] VITALS: BP 94/53
--- NOTE | 2024-07-27 02:04 | NUR ---
VITAL SIGNS DONE. ASSESSMENT DONE. WATER REFRESHED. pt DENIES ANY OTHER NEEDS AT THIS TIME. CALL LIGHT WITHIN REACH.
--- NOTE | 2024-07-27 04:30 | NUR ---
pt RESTING IN THE BED WITH EYES CLOSED. RR EVEN AND UNLABORED. CALL LIGHT WITHIN REACH.
[2024-07-27 05:35] VITALS: BP 95/60
[2024-07-27 05:39] VITALS: BP 95/60
[2024-07-27] MEDS ORDERED: CEFTRIAXONE SODIUM 1 GM VIAL IV ONE (06:12)
--- NOTE | 2024-07-27 06:41 | NUR ---
pt RESTING IN THE BED. VITAL SIGNS DONE. DAILY CARE DONE. GAUZE IS GONE AT THIS TIME. AREA CLEANED. WATER REFRESHED. IV ABX INFUSING PER ODER SEE MAR. pt DENIES ANY OTHER NEEDS AT THIS TIME. CALL LIGHT WITHIN REACH. CALL LIGHT WITHIN REACH.
[2024-07-27] MEDS ORDERED: CEFTRIAXONE SODIUM 1 GM in SODIUM CHLORIDE 0.9% 100 ML IV SCH (07:00)
--- NOTE | 2024-07-27 07:21 | NUR ---
REPORT FROM BJ RUTLEDGE.
[2024-07-27] MEDS ORDERED: LEVOFLOXACIN500 MG PO (07:32)
[2024-07-27] MEDS ORDERED: OXYCODONE HCL5 MG PO (07:33)
[2024-07-27 07:47] VITALS: BP 95/60
--- NOTE | 2024-07-27 07:48 | NUR ---
MORNING ASSESSMENT IS COMPLETE. PATIENT IS RESTING IN BED, DENIES WANTING TO GET UP TO CHAIR FOR BREAKFAST. RIGHT HAND IV IS REMOVED WITH CATHETER INTACT. PATIENT RATES DAILY PAIN 3/10 AND DENIES NEEDING ANYTHING FOR PAIN. URINE IS YELLOW. PATIENT IS AWAITING SPOUSE TO COME IN AND REVIEW DAILY CARE AND EDUCATION FOR DISCHARGE. NO OTHER NEEDS AT THIS TIME.
--- NOTE | 2024-07-27 07:54 | NUR ---
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
--- NOTE | 2024-07-27 08:11 | NUR ---
PATIENT IN BED AT THIS TIME. UTILITY BILL COMPLAINTS INVESTIGATOR WENT INTO PATIENTS ROOM FOR HOURLY ROUNDS. CALL LIGHT WITHIN REACH, NO FURTHER NEEDS AT THIS TIME.
--- NOTE | 2024-07-27 08:58 | NUR ---
MORNING BP MED HELD FOR BP 95/60. PATIENT WILL FOLLOW UP WITH HIS PCP TO BP MED ADJUSTMENT.
[2024-07-27] MEDS ORDERED: LORATADINE 10 MG TAB PO SCH (09:00)
[2024-07-27] MEDS ORDERED: lisinopriL 20 MG TAB PO SCH (09:00)
[2024-07-27 10:03] VITALS: BP 134/65
--- NOTE | 2024-07-29 17:36 | PATH ---
[facility] [address], [place] [address] Signed SPECIMEN(S): A PENILE FORESKIN SPECIMEN(S): B PROSTATE CHIPS SPECIMEN SOURCE: A. PENILE FORESKIN B. PROSTATE CHIPS CLINICAL HISTORY: BPH with LUTS; penile cyst. FINAL PATHOLOGIC DIAGNOSIS: A. Tissue from penile foreskin: - Benign epidermal inclusion cyst. - No malignancy identified. B. Prostate, TURP: - Benign prostatic hyperplasia with focal chronic prostatitis. - No malignancy identified. P MICROSCOPIC EXAMINATION: Histologic sections of all submitted blocks are examined by light microscopy. These findings, together with the gross examination, support the pathologic diagnosis. GROSS DESCRIPTION: A. The specimen, labeled and designated "Gisselle Dyer, epidermal inclusion cyst of penile foreskin," is received in formalin and consists of 2.3 x 1.9 x 0.7 cm pink-white partially opened structure. The specimen is inked and sectioned revealing an orange-brown pasty material. Fire Control Assistant sections are submitted in (A1). B. The specimen, labeled and designated "Eric, Gisselle, prostate chips," is received in formalin is a eight g, 6.4 x 5.3 x 1.4 cm aggregate of pink-hua to delatorre rubbery soft tissue. The specimen is entirely submitted in (B1-B10). FB (under the direct supervision of a pathologist) The Gross Description was prepared using a voice recognition system. The report was reviewed for accuracy; however, sound-alike word errors, addition and/or deletions may occur. If there is any question about this report, please contact Client Services. ADDITIONAL NOTES: PATIENT NAME: RG DYER JR PATHOLOGY DATE OF : 57 REPORT #: [id number] PHYSICIAN: LILY JADE PCP: TOBY ALVAREZ PAC REPORT IS CONFIDENTIAL AND NOT TO BE RELEASED WITHOUT AUTHORIZATION [facility] [address] [place], [place] [address], [place] [address] Signed Immunohistochemical and/or in situ hybridization studies if performed in this case included appropriate positive controls that reacted as expected. This test was developed and its performance characteristics determined by [facility]. It has not been cleared or approved by the U.S. Food and Drug Administration. The FDA has determined that such clearance or approval is not necessary. This test is used for clinical purposes. It should not be regarded as investigational or for research. [facility] is certified under the Clinical Laboratory Improvement Amendments of 1988 (CLIA) as qualified to perform high complexity clinical laboratory testing. PERFORMING LABORATORY: Technical component was performed by [facility], [address] [place] [id number] (CLIA# [id number]). Professional interpretation was performed by [facility] - [facility], [address] [place] [id number] (CLIA#: [id number]). Diagnostician: Fady Aleman MD Pathologist Electronically Signed 07/29/2024 Copies: ~ PATIENT NAME: RG DYER JR PATHOLOGY DATE OF : 57 REPORT #: [id number] PHYSICIAN: LILY JADE PCP: TOBY ALVAREZ PAC REPORT IS CONFIDENTIAL AND NOT TO BE RELEASED WITHOUT AUTHORIZATION
== END 2024-07-27 10:05 | disposition home or self-care (01) ==
LOC: DS 09:55 → MS 17:02 → DS 07-27 10:05
PROVIDERS: ATTEND Urology
DX: N40.1 Benign prostatic hyperplasia with lower urinary tract symptoms (principal); N13.8 Other obstructive and reflux uropathy; N41.1 Chronic prostatitis; N48.89 Other specified disorders of penis; I10 Essential (primary) hypertension; E78.5 Hyperlipidemia, unspecified; Z79.899 Other long term (current) drug therapy
CPT/HCPCS: 00914; 51700; 88304; 88305; 96360; 96361; 96374; C1769; J0330; J0690; J0696; J1100; J2003; J2405; J2704; J3010; J3490; J7121